=== PATIENT | male | born 1985 | race Caucasian/White ===

== ENCOUNTER 2024-12-24 13:38 | Emergency (ER) | payer OTHER, SELFPAY ==
--- NOTE | 2024-12-24 13:55 | ED_ITS ---
HPI - Extremity Problem General Chief complaint: Extremity Problem,Nontraumatic Stated complaint: Right Hand Pain Time Seen by Provider: 12/24/24 14:00 Source: patient, RN notes reviewed and old records reviewed Mode of arrival: ambulatory Limitations: no limitations History of Present Illness HPI Narrative: 39 year old male who presents to express care with complaints of right hand pain specifically to right thumb and index finger with stated history of psoriatic arthritis and some stiffness to his left thumb with flare since end of November. Patient reports that he is on Sulfasalazine and Celebrex presently to try and manage his arthritis presently. Patient reports that he has an appointment with a new agricultural engineering technologist at [facility] in December on the . He was hoping today to get a joint injection to hold him over till he see Heating Equipment Installer. Instructed patient that we do not perform joint injections here and we have no x-ray available at out facility today. Offered patient oral or IM steroid injection but patient is concerned it will raise his blood sugar too much and he is Type II diabetic on metformin. Discussed different topical medications on market not receptive to diclofenac ointment.He reports that he has been taking Ibuprofen for his pain also.Patient reports that he was on Tremfya last but had allergic reaction with hives from that medication. MD Complaint: extremity pain, extremity swelling and joint paint (thumb and index finger) Onset (ago): week(s) (2 weeks flare) Location: left, right and upper extremity (left thumb stiffness, pain right thumb and index finger) Severity scale (1-10): 8 Quality: sharp and other (throbbing) Exacerbating factors: range of motion Related Data Home Medications ?Medication ?Instructions ?Recorded ?Confirmed ?Last Taken ?Type levothyroxine 112 mcg tablet 112 mcg PO DAILY 12/31/18 Unknown History losartan 100 mg tablet 100 mg PO DAILY 12/31/18 Un known History rosuvastatin 5 mg tablet 5 mg PO DAILY 12/31/18 Unkn own History celecoxib 200 mg capsule mg 12/24/24 Unknown History famotidine 40 mg tablet mg 12/24/24 Unknown History levothyroxine 150 mcg tablet mcg 12/24/24 Unknown His tory (Synthroid) metformin 500 mg tablet,extended mg PO 12/24/24 Unkno wn History release 24 hr montelukast 10 mg tablet mg 12/24/24 Unknown History rosuvastatin 10 mg tablet mg 12/24/24 Unknown History sulfasalazine 500 mg PO 12/24/24 Unknown History tablet,delayed release Allergies Allergy/AdvReac Type Severity Reaction Status Date / Time pineapple Allergy Unknown Unknown Verified 12/24/24 13:55 red meat Allergy Unknown Unknown Uncoded 12/24/24 13:55 Review of Systems Review of Systems: CONSTITUTIONAL: Denies fever, chills, or sweats. EYES: Denies visual changes, redness, or discharge. ENT: Denies rhinorrhea, congestion, sore throat, or otalgia. CARDIOVASCULAR: Denies chest pain, palpitations, or edema. RESPIRATORY: Denies cough or dyspnea. GASTROINTESTINAL: Denies abdominal pain, nausea, vomiting, or diarrhea. GENITOURINARY: Denies dysuria or hematuria. SKIN: Denies rash or itching. MUSCULOSKELETAL: Denies back pain,positive for pain to his right index finger and thumb and also complaints of stiffness of his left thumb joint pain, or myalgia.History of psoriatic arthritis NEUROLOGIC: Denies headache, numbness, or weakness. PSYCHIATRIC: Denies anxiety or depression. All systems reviewed & are unremarkable except as noted in HPI and below PMFSH Past Medical History Medical History (Updated 12/26/24 @ 07:38 by Sangita Funk APRN) PA (psoriatic arthritis) Diabetes mellitus, type II Hypertension Anxiety Depression Head ache Psoriasis Thyroid disease Family History Family History (Updated 06/04/18 @ 11:26 by DOCTOR UNKNOWN) Mother Family history of thyroid disease Family history of malignant neoplasm of breast in first degree relative Father Acute myocardial infarction Grandparent Acute myocardial infarction Family history of chronic obstructive pulmonary disease Social History Social History (Updated 12/26/24 @ 07:33 by Sangita Funk APRN) Smoking status: Never smoker Alcohol intake: current Substance use type: does not use Living arrangements: with family Gender identity (if verbalized by the patient): Male Comments At time of signature, agree with nursing past medical, surgical, social and family history. There is no relevant family history pertinent to the presenting complaint Exam Narrative: GENERAL: Well-appearing, well-nourished, obese,and in no acute distress. HEAD: Normocephalic, atraumatic. EYES: PERRLA and EOMI. ENT: Nares clear, no rhinorrhea or epistaxis. Mucous membranes moist.TMs normal with good light reflex, throat pink with no swelling NECK: Supple.no lymphadenopathy CHEST: Clear to auscultation. No respiratory distress.SAO2 98% on room air HEART: Regular rate and rhythm. No murmur heard. Normal peripheral pulses. ABDOMEN: Soft, nontender, nondistended, normal active bowel sounds. EXTREMITIES: Normal range of motion. No acute edema.Reports pain to the right index finger and right thumb with stiffness of left thumb from flare of psoriatic arthritis. Patient reports no tingling or numbness to hands, reports pain increases with movement of affected fingers SKIN: Warm, dry, no rash. NEURO: No focal deficits. Alert and oriented x3. Course Course Emergency Course: Patient is aware of diagnosis, understands and agrees to treatment plan.? Anticipatory guidance given.? Patient agrees to follow-up as directed and is aware of reasons to seek care at the emergency department. Portions of this record may have been created with voice recognition software Level of Care: Express Care Visit Vital Signs Vital signs: Vital Signs Temperature 36.3 C L 12/24/24 13:56 Pulse Rate 73 12/24/24 13:56 Respiratory Rate 20 12/24/24 13:56 Blood Pressure 151/101 H 12/24/24 13:56 Pulse Oximetry 98 12/24/24 13:56 Oxygen Delivery Room Air 12/24/24 13:56 Temperature 36.3 C L 12/24/24 13:56 Pulse Rate 73 12/24/24 13:56 Respiratory Rate 20 12/24/24 13:56 Blood Pressure 151/101 H 12/24/24 13:56 Pulse Oximetry 98 12/24/24 13:56 Oxygen Delivery Room Air 12/24/24 13:56 Reviewed MDM - Extremity (Nontraumatic) Differential Diagnosis Differential diagnosis: Likely other (swelling and pain of right thumb and index finger, stiffness left thumb, psoriatic arthritis flare) Medical Records Attestation: I reviewed the patient's medical records. Critical Care Time Critical Care Time Critical Care Time: No Discharge Plan Discharge Clinical Impression: PA (psoriatic arthritis) Hand pain Qualifiers: Laterality: bilateral Qualified Code(s): M79.641 - Pain in right hand Patient Disposition: Home Condition: Stable Instructions: Antibiotic Form, Arthralgia (ED) Additional Instructions: Tylenol arthritis strength 650 mg 1 tab routinely every 8 hours for pain Ibuprofen 600 mg p.o. for break through pain every 6 hours topical ointment such as Eze Hubbard with lidocaine Encourage movement of joints to help prevent atrophy Follow-up with PCP if further problems or concerns Ice to the area 20-30 minutes 4-6 times a day Elevate above heart Follow up with new agricultural engineering technologist appointment at [facility] on January 04 If your symptoms persist, change or worsen significantly before you can contact your personal physician then please, without delay, go to the emergency department for further evaluation. Follow-up with PCP in 7-10 days or sooner if needed Follow up with PCP soon in regards to your blood pressure which is elevated above threshold for referral. Blood pressure above 120/80 may indicate pre- hypertension. 151/101 Patient Language: Syriac Prescriptions: No Action celecoxib 200 mg capsule famotidine 40 mg tablet sulfasalazine 500 mg tablet,delayed release (DR/EC) PO levothyroxine [Synthroid] 150 mcg tablet montelukast 10 mg tablet metformin 500 mg tablet extended release 24 hr PO rosuvastatin 10 mg tablet losartan 100 mg tablet 100 mg PO DAILY rosuvastatin 5 mg tablet 5 mg PO DAILY levothyroxine 112 mcg tablet 112 mcg PO DAILY Follow-up/Referrals: PHYSICIAN,PORTFOLIO ASSISTANT [Primary Care Provider, Internal Medicine] Time of Disposition: 14:11 Quality Lukas Coma Scale Eyes: Open Verbal: Oriented and Alert Motor: Follows Commands Lukas Coma Total Score: 15
[2024-12-24 13:56] VITALS: BP 151/101; PULSE 73; RESP 20; TEMP 36.3; O2SAT 98
--- OUTSIDE RECORDS SUMMARY | 2024-12-24 17:55 | XMS_ITS | Clinical Summary ---
Author Organization [facility] Address [address] [place] [address] Care Team Providers Care Control Clerk Food And Beverage Name Role Phone Unavailable Primary Care Provider Unavailabl e Source Comments [facility] Stockpile,non-owned Affiliates and Associated Physician Practices is amultiple site organization consisting of ambulatory clinics and hospital sitesin [place], [place], [place] and [place]. This disclosure is being madepursuant to the Care Everywhere program and may not contain all information available regarding this patient. Last updated 17.[facility] Stockpile Social History Tobacco Use Types Packs/Day Years Used Date Smoking Tobacco: Never Assessed Sex and Gender Information Value Date Recorded Sex Assigned at Not on file Legal Sex Male 3:58 PM DIRECTOR OF EARLY CHILDHOOD Gender Identity Not on file Sexual Orientation Not on file Plan of Treatment Health Maintenance Due Date Last Done Comments LIPID TESTING 1983 HIV SCREENING 09/08/1998 HEPATITIS C SCREENING 09/04/2001 DTAP/TDAP/TD VACCINES (1 - Tdap) 09/08/2002 HEPATITIS B VACCINE (1 of 3 - 19+ 3-dose series) 09/08/2002 HPV VACCINE (1 - 3-dose SCDM series) 09/08/2010 DEPRESSION SCREENING 02/11/2024 COVID-19 VACCINE (1 - 2023-2 5 season) 2024 INFLUENZA VACCINE (#1) 2024 ZOSTER VACCINE (1 of 2) 09/08/2033 HIB VACCINE Aged Out No longer eligi ble based on patient's age to complete this topic MENINGOCOCCAL (Group B) VACC INE SHARED DECISION-MAKING Aged Out No longer eligibl e based on patient's age to complete this topic MENINGOCOCCAL GROUPS A/C/Y/W VACCINE Aged Out No longer eligible b ased on patient's age to complete this topic PNEUMOCOCCAL VACCINE Aged Out No long er eligible based on patient's age to complete this topic Insurance YULISA
--- OUTSIDE RECORDS SUMMARY | 2024-12-24 17:55 | XMS_ITS | Encounter Summary ---
Author Organization [facility] Address [address] [place] [address] Phone Care Team Providers Care Musculoskeletal Physician Name Role Phone Helder Figueroa MD Primary Care Provider [phone] No, Physician Primary Care Provider [phone] Ann Marie Orta MD Primary Care Provider [phone] No, Physician Primary Care Provider [phone] Encounter Details Date Type Department Care Team (Late st Contact Info) Description 01/18/[address] [facility] ProviderStarla MD [address] [place] [address] Social History Tobacco Use Types Packs/Day Years Used Date Smoking Tobacco: Never Smokeless Tobacco: Never Alcohol Use Standard Drinks/Week Comments Yes 0 (1 standard drink = 0.6 oz pur e alcohol) Sex and Gender Information Value Date Recorded Sex Assigned at Not on file Legal Sex Male 2:08 PM THERMOFORMING MACHINE OPERATOR Gender Identity Not on file Sexual Orientation Straight 03/11/2024 2: 24 PM THERMOFORMING MACHINE OPERATOR documented as of this encounter Plan of Treatment Not on file documented as of this encounter Procedures Procedure Name Priority Date/Time Associated Diagnosis Comments DISCHARGE LABORATORY CUMULATIVE REPORT 01/18/2017 12:00 AM THERMOFORMING MACHINE OPERATOR documented in this encounter Results * DISCHARGE LABORATORY CUMULATIVE REPORT (01/18/2017 12:00 AM THERMOFORMING MACHINE OPERATOR) Narrative 01/18/2017 12:00 AM THERMOFORMING MACHINE OPERATOR Ordered by an unspecified provider. us Historical Provider LAB BLOOD ORDERABLES Lia l Result documented in this encounter Visit Diagnoses Not on filedocumented in this encounter Care Teams Musculoskeletal Physician Relationship Specialty Start Date End Date Helder Figueroa MD PCP - General 05/10/16 09/01/23 No, Physician PCP - General 09/02/23 09/09/24 [place] [id number] [address] PCP - General Endocrinology Diabetes & Metabolism 09/10/24 10/05/24 No, Physician PCP - General 11/03/24 documented as of this encounter
--- OUTSIDE RECORDS SUMMARY | 2024-12-24 17:55 | XMS_ITS | Clinical Summary ---
Author Organization [facility] Address [address] [place] [address] Phone Care Team Providers Care Electrotype Caster Name Role Phone Provider, None Primary Care Provider Unavailabl e Active Problems Problem Noted Date Diagnosed Date Adjustment disorder with mixed anxiety and depre ssed mood 08/27/2024 Encounters Date Type Department Care Team Description 11/26/2024 1:00 PM CDT Outpatient Clinic Visit [facility] [address] [place] [address] Areli Rey, MARIA DE JESUS Adjustment disorder with mixed anxiety and depressed mood (Primary Dx) Discharge Disposition: Discharged to home or Selfcare 11/26/2024 Travel 10/22/2024 1:45 PM CDT Outpatient Clinic Visit [facility] [address] [place] [address] Areli Rey, MARIA DE JESUS Adjustment disorder with mixed anxiety and depressed mood (Primary Dx) Discharge Disposition: Discharged to home or Selfcare 10/22/2024 Travel 09/24/2024 1:00 PM CDT Outpatient Clinic Visit [facility] [address] [place] [address] Areli Rye, MARIA DE JESUS Adjustment disorder with mixed anxiety and depressed mood (Primary Dx) Discharge Disposition: Discharged to home or Selfcare 09/24/2024 Travel from Last 3 Months Social History Tobacco Use Types Packs/Day Years Used Date Smoking Tobacco: Never Assessed Sex and Gender Information Value Date Recorded Sex Assigned at Not on file Legal Sex Male 11:15 PM CDT Gender Identity Not on file Sexual Orientation Not on file Plan of Treatment Health Maintenance Due Date Last Done Comments Hepatitis C Virus (HCV) Screening 1985 Hepatitis B Immunization (1 of 3 - 19+ 3-dose series) 09/08/2002 Human Papillomavirus (HPV) Immunization (1 - Risk 3-dose SCDM series) 09/08/2010 Influenza Immunization (#1) 10/11/2024/0 02/2024, 02/22/2021, 11/20/2018, Additional history exists SARS-COV-2 Immunization ( - 2024- season) 2024 02/22/2021, 04/17/2020 Respiratory Syncytial Virus (RSV) Immunization (Adult) (1 - 1-dose 75+ series) 09/08/2058 TdaP Immunization Completed 03/22/2018, 11/08/2009 Meningococcal Immunization (ACWY) Aged Out No longer eligible based on patient's age to complete this topic Pneumococcal Immunization Combined Aged Out No longer eligible based on patient's age to complete this topic Rotavirus Immunization Aged Out No lo nger eligible based on patient's age to complete this topic Goals Goal Patient Goal Type Associated Problems Recent Progress Patient-Stated? Author ANXIETY Anxiety On track( 025 1:58 PM CDT) No Arlei Rey, HAND II TUBE BENDER Note: Goal/Objective: Increase coping skills, stress management tools and focus on self care. Anticipated Time Frame for Goal Completion: 6 months Goal Reviewed with: patient Readiness to change: Ready to change Department associated with goal: [facility] Steps to achieve goal: will attend counseling/psychotherapy sessions at least once monthly, at least 6 sessions, utilizing individual and/or group sessions to express thoughts and feelings. to identify, verbalize and process at least three contributing factors/triggers to anxiety and depression. to identify and verbalize at least three actions/skills to prevent and/or cope with anxiety and depression. to put into action, at least one time weekly, for one month, an action/skill to prevent and or cope with anxiety and depression. Insurance [employer] Care Teams Electrotype Caster Relationship Specialty Start Date End Date Provider, None [place] PCP - General 06/24/24
--- OUTSIDE RECORDS SUMMARY | 2024-12-24 17:55 | XMS_ITS | Clinical Summary ---
Author Organization [facility] Address [address] [place] [address] Care Team Providers Care Ambulatory Services Representative Name Role Phone No, Physician Primary Care Provider [phone] Allergies Active Allergy Reactions Criticality Noted Date Comments Pork/Porcine Containing Products Hives Medium 06/2024 Medications celecoxib (CeleBREX) 200 mg capsule Take 1 capsule (200 mg total) by mouth 2 (two) times a day Active sulfaSALAzine EN (AZULFIDINE EN) 500 mg EC tablet TAKE 1-2 TABLETS BY ORAL ROUTE 2 TIMES A DAY 2 Active amLODIPine (NORVASC) 5 mg tablet Take 1 tablet (5 mg total) by mouth daily 90 tablet 3 3 Active syringe with needle, safety 3 mL 25 gauge x 5/8 syringe Use to inject testosterone IM 20 each 11 5 Active predniSONE (DELTASONE) 10 mg tablet 5 Active montelukast (SINGULAIR) 10 mg tablet Take 1 tablet (10 mg total) by mouth daily 5 Active famotidine (PEPCID) 40 mg tablet Take 1 tablet (40 mg total) by mouth daily 5 Active EnbreL SureClick 50 mg/mL (1 mL) pen injector 5 Active levothyroxine (SYNTHROID) 150 mcg tabletIndicatio ns:Type 2 diabetes mellitus with hyperglycemia, without long-term current use of insulin (HCC) Take 1 tablet (150 mcg total) by mouth every morning 90 tablet 2 5 Active losartan (COZAAR) 100 mg tabletIndicatio ns:Type 2 diabetes mellitus with hyperglycemia, without long-term current use of insulin (HCC) Take 1 tablet (100 mg total) by mouth daily 90 tablet 3 5 Active metFORMIN XR (GLUCOPHAGE XR) 500 mg 24 hr tabletIndicatio ns:Type 2 diabetes mellitus with hyperglycemia, without long-term current use of insulin (HCC) Take 2 tabs BID 360 tablet 3 5 Active rosuvastatin (CRESTOR) 10 mg tabletIndicatio ns:Type 2 diabetes mellitus with hyperglycemia, without long-term current use of insulin (HCC) Take 1 tablet (10 mg total) by mouth daily 90 tablet 2 5 Active glimepiride (AMARYL) 4 mg tabletIndicatio ns:Type 2 diabetes mellitus with hyperglycemia, without long-term current use of insulin (HCC) Take 1 tablet (4 mg total) by mouth daily before breakfast 30 tablet 3 5 Active tirzepatide (Mounjaro) 5 mg/0.5 mL pen injector injectionIndica tions:Type 2 diabetes mellitus with hyperglycemia, without long-term current use of insulin ([facility]) Inject 0.5 mL (5 mg total) under the skin once a week 2 mL 3 5 Active Active Problems Problem Noted Date Diagnosed Date Diagnosis unknown 09/22/2024 Overview (09/22/2024): [employer]reesia 01/30/2024 Contraception management 09/22/2024 Overview (09/22/2024): [employer] 01/30/2024 Testicular pain 09/22/2024 Diabetes mellitus 09/22/2024 Overview (09/22/2024): [employer] 01/30/2024 Lower urinary tract symptoms (LUTS) 09/22/2024 Autoimmune disease 09/22/2024 Overview (09/22/2024): [employer] 01/30/2024 Hypertension 09/22/2024 Overview (09/22/2024): [employer] 01/30/2024 Adjustment disorder with mixed anxiety and depre ssed mood 08/27/2024 Morbid (severe) obesity due to excess calories 0 05/22/2023 Assessment & Plan (05/22/2023 12:27 PM CDT): Continue working on lifestyle, and will restart GLP1a when able to. Body mass index (BMI) 45.0-49.9, adult Type 2 diabetes mellitus wit h hyperglycemia, without long-term current use of insulin 02/20/2023 Assessment & Plan (09/02/2023 11:06 AM CDT): Chronic problem, improving but not at goal. On metformin and Mounjaro. Has some GI side effects intermittently with Mounjaro. Start glipizide 5 mg with first meal. Take metformin 4 pills daily consistently. Schedule an eye exam. Update routine labs next visit. Assessment & Plan (05/22/2023 12:30 PM CDT): Chronic problem, not at goal due to insurance change and being off meds. He was previously on max dose metformin and tolerated it well so increased this today. And gave him glipizide 5 mg to take with his first meal to use in the short term. When his new insurance changes this summer he'll let us know and we'll restart Mounjaro and he can stop glipizide. He was having some upper GI symptoms (burping, terrible smell) so may want to try omeprazole OTC when he restarts Mounjaro and see if it helps with symptoms initially. He is unable to void today so will update MA/Cr next visit. Hyperlipidemia associated with type 2 diabetes bridger jens 02/20/2023 Assessment & Plan (09/02/2023 11:05 AM CDT): Chronic problem. On statin therapy, no changes. Take rosuvastatin consistently. Assessment & Plan (05/22/2023 10:26 AM CDT): Chronic problem. On statin therapy, no changes. Hypertension associated with type 2 diabetes benjy litus 02/20/2023 Assessment & Plan (09/02/2023 11:05 AM CDT): Chronic problem, not at goal. Resume taking losartan and amlodipine consistently. Assessment & Plan (05/22/2023 10:26 AM CDT): Controlled on losartan, amlodipine. No changes. Testicular hypofunction 09/12/2020 Overview (09/12/2020): Dr Guthrie managing Assessment & Plan (09/02/2023 11:07 AM CDT): Chronic problem, was off Xyosted due to insurance issue. He now has new insurance and wants to try again. Notices mood changes and decreased libido. Assessment & Plan (05/22/2023 10:26 AM CDT): Chronic problem, off Xyosted. Option is to change to IM testosterone, he declines. Will wait until insurance changes then let us know and we can send in Xyosted again. Assessment & Plan (10/15/2022 4:23 PM CDT): Update free to the testosterone, prolactin and FSH Will start process for PA with Xyosted as indicated Assessment & Plan (05/10/2021 11:04 PM CDT): Continue management by his operations scheduler. Dysuria 09/12/2020 At risk for sexually transmi tted disease due to unprotected sex 09/12/2020 Assessment & Plan (09/12/2020 9:03 AM CDT): STD panel call back for results. Left leg swelling 07/25/2020 Assessment & Plan (07/25/2020 5:33 PM CDT): Very minimal on examination today and both lower extremities circumference is similar. May be the result of his recent knee swelling. Use compression hose, low-salt diet, keep his leg elevated. Call back if symptoms worsen. Fungal otitis externa 06/05/2020 Assessment & Plan (06/05/2020 9:30 AM CDT): Lotrimin 10 drops into each ear twice daily for 10 days Avoid ear cleaning techniques Avoid water to ears Follow up in 3-4 weeks How to Use Ear Drops Warm them up in your hand or under your arm for 2 minutes Then lay on your side with ear to have drops placed up Then pull back on the ear to open the ear canal Place the drops, then massage outer portion of ear to distribute ear drops for 2 seconds Let the drops sit in the ear for [address] cotton ball and sit up Remove the cotton ball after less than ten minutes Repeat if instructed to the other ear Avoid ear cleaning techniques Avoid water to ear Otitis externa, fungal, right ear 08/24/2019 Assessment & Plan (07/03/2020 10:59 AM CDT): Avoid ear cleaning techniques Avoid water to ears Call if ears plug up again Assessment & Plan (09/07/2019 9:01 AM CDT): Continue Lotrimin twice daily for the rest of the week Avoid ear cleaning techniques Avoid water to ears If hearing continues to seem plugged, call for hearing test Assessment & Plan (08/24/2019 11:40 AM CDT): Lotrimin (clotrimazole) drops to RIGHT EAR twice daily for 14 days Avoid ear cleaning techniques Avoid water to ears Follow up in one week Lotrisone to outer portion of ears How to Use Ear Drops discussed and Handout provided Right ear pain 06/07/2019 Assessment & Plan (06/07/2019 10:10 AM CDT): Amoxicillin and Cortisporin drops. Call back if no improvement in pain and hearing for ENT evaluation later this week. Psoriatic arthritis (CMS/HCC) 11/20/2018 Overview (02/20/2021): Dr Kelsey Bailey as of 02/2020 Assessment & Plan (04/07/2022 10:27 PM [employer]): Follow-up with repair manager as they direct. Assessment & Plan (05/10/2021 11:04 PM CDT): Continue management by his repair manager. Assessment & Plan (07/29/2019 10:22 AM CDT): Continue diclofenac. He is aware the risks posed by NSAIDs. He is looking for a new repair manager. He is choosing to avoid immunosuppressive agents until COVID-19 issues resolved. Assessment & Plan (11/20/2018 2:25 PM CDT): Continue methotrexate and follow-up with his repair manager as they direct. Migraine without aura and wi thout status migrainosus, not intractable 05/20/2018 Assessment & Plan (05/20/2018 5:12 PM CDT): Trial of Imitrex. Treat sleep apnea if present. Excessive daytime sleepiness 05/19/2018 Assessment & Plan (05/20/2018 5:10 PM CDT): Sleep study to rule out sleep apnea call back for results. He is aware the need for follow-up appointment for CPAP if diagnosed with sleep apnea and started on CPAP therapy. Polyarthritis 02/16/2018 Assessment & Plan (05/20/2018 5:10 PM CDT): Laboratory workup and follow-up with repair manager as they direct. Assessment & Plan (05/06/2018 9:19 PM CDT): Will try holding rosuvastatin for 1 month and if no improvement would recommend restarting. Referral to Dr. Cole due to history of psoriasis and now widespread polyarthralgia. Morbid obesity with BMI of 40.0-44.9, adult 07/12 Assessment & Plan (04/07/2022 10:27 PM [employer]): Patient is encouraged to lose weight with a combination of caloric reduction and increased exercise. Various strategies discussed. The long-term risks associated with continued morbid obesity discussed. Assessment & Plan (05/21/2021 10:08 AM CDT): Patient is encouraged to lose weight with a combination of caloric reduction and increased exercise. Various strategies discussed. The long-term risks associated with continued morbid obesity discussed. Assessment & Plan (11/01/2020 8:33 AM CDT): The patient was counseled on the importance of maintaining a healthy weight and the risks of obesity. Weight loss recommended. Assessment & Plan (09/12/2020 9:02 AM CDT): Patient is encouraged to lose weight with a combination of caloric reduction and increased exercise. Various strategies discussed. The long-term risks associated with continued morbid obesity discussed. Assessment & Plan (07/25/2020 5:33 PM CDT): Patient is encouraged to lose weight with a combination of caloric reduction and increased exercise. Various strategies discussed. The long-term risks associated with continued morbid obesity discussed. Assessment & Plan (08/06/2017 2:17 PM CDT): Patient is encouraged to lose weight with a combination of caloric reduction and increased exercise. Various strategies discussed. The long-term risks associated with continued morbid obesity discussed. Healthcare maintenance 06/11/2017 Assessment & Plan (04/07/2022 10:27 PM [employer]): Flu shot each November. Tetanus booster every 10 years. Diet exercise for weight loss recommended. Will see him back in 6 months with lab sooner if needed. Assessment & Plan (05/10/2021 11:04 PM CDT): Flu shot each November. Tetanus booster every 10 years. COVID vaccine recommended. Diet exercise for weight loss recommended. Will see him back in 3 months with lab sooner if needed. Assessment & Plan (07/29/2019 10:24 AM CDT): Flu shot each November. Tetanus booster every 10 years. Diet exercise for weight loss. Will see him back in 3 months with lab sooner if needed. Assessment & Plan (05/20/2018 5:11 PM CDT): Flu shot each November. Tetanus booster every 10 years. Will see him back in 6 months with lab sooner if needed. Assessment & Plan (06/11/2017 3:35 PM CDT): Flu shot each November. Tetanus booster every 10 years. Will plan on seeing him back in 6 months with fasting lab sooner if needed. Acute non-recurrent pansinusitis 05/30/2017 Assessment & Plan (05/30/2017 10:58 AM CDT): Recommended conservative therapy to treat symptoms including Flonase nasal spray, which was prescribed in office today, use of a humidifier vaporizer at night, daily antihistamine use as a month a fence this being more of an allergic sinusitis based on clinical presentation and presenting symptoms however patient is wanting to ensure that prior to starting his new job, which he does have any off time for, that we treat him for any bacterial infection which I sent off in amoxicillin course if in the event symptoms worsen over the next 3-5 days and certainly if they fail to improve come Friday or Friday. Close follow-up outpatient follow-up in office as needed and certainly if symptoms are not improved with antibiotics in off to the pharmacy. Generalized anxiety disorder 01/24/2017 Assessment & Plan (07/29/2019 10:24 AM CDT): Continue sertraline and focus on exercise and consider counseling if symptoms remain bothersome. Assessment & Plan (08/06/2017 2:17 PM CDT): Continue sertraline and increased dose to 100 mg daily. Assessment & Plan (06/11/2017 3:35 PM CDT): Add sertraline and discussed side effects and will call back if any develop. Psoriasis 07/12/2016 Overview (07/23/2016): Psoriasis Shoulder pain 03/25/2014 Overview (05/17/2016): Shoulder pain Hypertension 08/12/2013 Overview (05/17/2016): Hypertension Assessment & Plan (04/07/2022 10:27 PM [employer]): Blood pressure well controlled on amlodipine, losartan Assessment & Plan (05/21/2021 10:08 AM CDT): Well controlled on the current regimen. Avoidance of salt, proper body weight, and routine exercise recommended. Assessment & Plan (05/10/2021 11:03 PM CDT): Restart his amlodipine and losartan call back if blood pressures do not improve. Assessment & Plan (09/12/2020 9:02 AM CDT): Add amlodipine to his losartan. Avoid salt increased exercise lose weight call back for any side effects and will re-evaluate at next visit October. Assessment & Plan (07/25/2020 5:31 PM CDT): Well controlled on the current regimen. Avoidance of salt, proper body weight, and routine exercise recommended. Assessment & Plan (07/29/2019 10:23 AM CDT): Borderline control. Avoid salt increased exercise lose weight. Assessment & Plan (11/20/2018 2:26 PM CDT): Well controlled on the current regimen. Avoidance of salt, proper body weight, and routine exercise recommended. Assessment & Plan (05/20/2018 5:09 PM CDT): Well controlled on the current regimen. Avoidance of salt, proper body weight, and routine exercise recommended. Assessment & Plan (05/06/2018 9:18 PM CDT): Well controlled on the current regimen. Avoidance of salt, proper body weight, and routine exercise recommended. Assessment & Plan (08/06/2017 2:17 PM CDT): Well controlled on the current regimen. Avoidance of salt, proper body weight, and routine exercise recommended. Assessment & Plan (06/11/2017 3:34 PM CDT): Well controlled on the current regimen. Avoidance of salt, proper body weight, and routine exercise recommended. Assessment & Plan (05/30/2017 10:56 AM CDT): Higher in office today than ideal. I recommended against taking any [id number] decongestants to assist with blood pressure control, continuing losartan at current dosing, close monitoring out patient regarding hypertension and certainly to follow up in our office as scheduled in 2 months for repeat blood pressure check and labs prior Atopic rhinitis 06/26/2013 Overview (05/17/2016): ALLERGIC RHINITIS NOS Hypothyroidism 06/26/2013 Overview (05/17/2016): Hypothyroidism Assessment & Plan (09/02/2023 11:05 AM CDT): Clinically and biochemically euthyroid. No medication changes. Assessment & Plan (05/22/2023 12:27 PM CDT): Clinically and biochemically euthyroid. No medication changes. Assessment & Plan (10/15/2022 4:23 PM CDT): Will update TSH and free T4 Continue levothyroxine . Will advise if there is need to make adjustment to the dose based on results of labs done today Assessment & Plan (04/07/2022 10:27 PM [employer]): Patient is asymptomatic on current dose of levothyroxine and TSH free T4 are normal and we will repeat levels before next visit. Assessment & Plan (05/10/2021 11:03 PM CDT): Continue levothyroxine managed by his operations scheduler. Assessment & Plan (07/25/2020 5:31 PM CDT): Continue his levothyroxine managed by his operations scheduler. Assessment & Plan (07/29/2019 10:23 AM CDT): Patient is asymptomatic on current dose of levothyroxine and TSH free T4 are normal and we will repeat levels after next visit. Assessment & Plan (11/20/2018 2:26 PM CDT): Follow-up with his operations scheduler as they direct. Assessment & Plan (05/20/2018 5:09 PM CDT): Patient is asymptomatic on current dose of levothyroxine and TSH free T4 are normal and we will repeat levels before next visit. Assessment & Plan (05/06/2018 9:17 PM CDT): Patient is asymptomatic on current dose of levothyroxine and TSH free T4 are normal and we will repeat levels before next visit. Assessment & Plan (08/06/2017 2:17 PM CDT): Patient is asymptomatic on current dose of levothyroxine and TSH free T4 are normal and we will repeat levels before next visit. Assessment & Plan (06/11/2017 3:34 PM CDT): Patient is asymptomatic on current dose of levothyroxine and TSH free T4 are normal and we will repeat levels before next visit. Major depressive disorder 06/26/2013 Overview (09/12/2020): Referred to Dr Jeffrey 09/2020 Assessment & Plan (05/10/2021 11:04 PM CDT): Continue management by psychiatrist. Assessment & Plan (09/12/2020 9:02 AM CDT): Continue sertraline and refer to Psychiatry as he requests. Assessment & Plan (11/20/2018 2:25 PM CDT): Well controlled on sertraline. Assessment & Plan (05/20/2018 5:09 PM CDT): Stable on sertraline Assessment & Plan (05/06/2018 9:17 PM CDT): Well controlled on sertraline. Assessment & Plan (08/06/2017 2:17 PM CDT): Improved on sertraline and will increase his dose to 100 mg daily. Call back if side effects develop. Type 2 diabetes mellitus with hyperlipidemia ([facility] S/HCC) 08/19/2012 Overview (02/20/2021): Dr Maribel Guthrie Assessment & Plan (10/15/2022 4:22 PM CDT): Hba1c was Lab Results Component Value Date HGBA1C 7.2 10/15/2022 today, indicating suboptimal DM control Goal Hba1c and blood glucose explained Diet and exercise were advised Prevention and treatment of hyypoglcyemia were discussed with the patient Blood glucose monitoring : 1-2 x wk Adjustment to medications: Continue metformin I recommended Mounjaro which might have less side effects than Ozempic I provided the patient with a box of 4 pens of 2.5 mg and he took the 1st dose here in the office The patient to let me know in a few weeks if he is tolerating well without the side effects that he was seen with Ozempic so we can switch to Mounjaro Continue metformin Assessment & Plan (04/07/2022 10:26 PM [employer]): Continue current medication regimen follow up with his operations scheduler as they direct. Check A1c once or twice yearly. Assessment & Plan (05/21/2021 10:07 AM CDT): A1c at goal at 6.5% and should follow-up with his operations scheduler for management as she directs. Assessment & Plan (05/10/2021 11:03 PM CDT): Continue management by his operations scheduler. Diet exercise weight loss discussed Assessment & Plan (07/25/2020 5:31 PM CDT): A1c reported as 12 in uncontrolled. He is now on Ozempic and metformin and has lost 19 lb with diet exercise. He should continues current efforts and follow-up with his operations scheduler as they direct. Check A1c before next visit. Assessment & Plan (07/29/2019 10:22 AM CDT): With a lengthy discussion regarding the importance of low carb diet increased exercise and weight loss for control his diabetes. He is aware the risks posed to his health with poorly controlled diabetes. He has restart his metformin 1 tablet with dinner for 1 week and then go up to 2 tablets for a week and then 3 tablets for a week and finally stop at 4 tablets. Side effects discussed and call back if any develop. Assessment & Plan (11/20/2018 2:25 PM CDT): A1c, LDL, and blood pressure currently well controlled on current regimen. Check a yearly diabetic eye exam and blood sugars daily. Monofilament testing is intact. Assessment & Plan (05/20/2018 5:09 PM CDT): A1c, LDL, and blood pressure currently well controlled on current regimen. Check a yearly diabetic eye exam and blood sugars daily. Take a daily aspirin. Monofilament testing is intact. Assessment & Plan (05/06/2018 9:17 PM CDT): A1c, LDL, and blood pressure currently well controlled on current regimen. Check a yearly diabetic eye exam and blood sugars daily. Take a daily aspirin. Monofilament testing is intact. Assessment & Plan (08/06/2017 2:16 PM CDT): A1c, LDL, and blood pressure currently well controlled on current regimen. Check a yearly diabetic eye exam and blood sugars daily. Take a daily aspirin. Monofilament testing is intact. Assessment & Plan (06/11/2017 3:34 PM CDT): A1c, , and blood pressure currently well controlled on current regimen. Check a yearly diabetic eye exam and blood sugars daily. Take a daily aspirin. Monofilament testing is intact. Thyroid nodule 08/19/2012 Overview (05/16/2016): Thyroid nodule Hypercholesterolemia 08/03/2012 Overview (08/26/2017): Pravastatin 40mg - LDL 135; Atorvastatin 20mg muscle aches; rosuvastatin 5 started 08/26/17 Assessment & Plan (04/07/2022 10:27 PM [employer]): Well controlled on current therapy and will check a lipid panel and LFTs in 6 months. Assessment & Plan (05/21/2021 10:08 AM CDT): Agree with increasing rosuvastatin 10 mg daily. Check lipids and LFTs before next visit. Diet exercise discussed. Assessment & Plan (05/10/2021 11:05 PM CDT): Restart his rosuvastatin check lipids and LFTs before next visit. Assessment & Plan (07/25/2020 5:31 PM CDT): Continue his rosuvastatin and check lipids and LFTs before next visit. Assessment & Plan (07/29/2019 10:23 AM CDT): Borderline control. Again focus on diet exercise weight loss. Continue rosuvastatin for now. Once A1c improved, consider increasing dose. Assessment & Plan (11/20/2018 2:26 PM CDT): Increase Crestor to daily again. Assessment & Plan (05/20/2018 5:09 PM CDT): Well controlled on current therapy and will check a lipid panel and LFTs in 6 months. Assessment & Plan (05/06/2018 9:18 PM CDT): Hold rosuvastatin for 1 month to see if he has improvement of his painful symptoms. Assessment & Plan (08/06/2017 2:17 PM CDT): Well controlled on current therapy and will check a lipid panel and LFTs in 6 months. If generalize aches and pains do not improve, consider discontinuation of his atorvastatin. Check CK level before next visit. Assessment & Plan (06/11/2017 3:34 PM CDT): He is back on his atorvastatin and will check labs before next visit. Resolved Problems Problem Noted Date Diagnosed Date Resolved Date Morbid obesity with BMI of 4 5.0-49.9, adult ([facility]) 02/16/2018 11/01/2020 Assessment & Plan (07/25/2020 5:33 PM CDT): Patient is encouraged to lose weight with a combination of caloric reduction and increased exercise. Various strategies discussed. The long-term risks associated with continued morbid obesity discussed. Assessment & Plan (07/29/2019 10:24 AM CDT): Patient is encouraged to lose weight with a combination of caloric reduction and increased exercise. Various strategies discussed. The long-term risks associated with continued morbid obesity discussed. Assessment & Plan (06/07/2019 10:10 AM CDT): Patient is encouraged to lose weight with a combination of caloric reduction and increased exercise. Various strategies discussed. The long-term risks associated with continued morbid obesity discussed. Assessment & Plan (11/20/2018 2:26 PM CDT): Patient is encouraged to lose weight with a combination of caloric reduction and increased exercise. Various strategies discussed. The long-term risks associated with continued morbid obesity discussed. Assessment & Plan (05/20/2018 5:10 PM CDT): Patient is encouraged to lose weight with a combination of caloric reduction and increased exercise. Various strategies discussed. The long-term risks associated with continued morbid obesity discussed. Assessment & Plan (05/06/2018 9:18 PM CDT): Patient is encouraged to lose weight with a combination of caloric reduction and increased exercise. Various strategies discussed. The long-term risks associated with continued morbid obesity discussed. Adult BMI 40.0-44.9 kg/sq m 05/30/2017 08/05/2017 Assessment & Plan (05/30/2017 10:41 AM CDT): Recommended patient to continue to increase heart healthy diet with adequate fruits, vegetables, and plenty of water along with mild-moderate daily exercise as tolerated. Morbid obesity 01/24/2017 08/05/2017 Assessment & Plan (06/11/2017 3:35 PM CDT): Patient is encouraged to lose weight with a combination of caloric reduction and increased exercise. Various strategies discussed. The long-term risks associated with continued morbid obesity discussed. BMI 45.0-49.9, adult 01/24/2017 018 Sore throat 01/09/2017 01/24/2017 Assessment & Plan (01/09/2017 3:01 PM ZIPPER SETTER LOCKSTITCH): Rapid strep negative. Throat culture obtained. Further direction pending these results. He has been instructed to contact the office if he has not heard from us regarding his culture results within 3 days. Humidification, fluids, and rest were recommended. Patient may take Tylenol or ibuprofen as needed for fever, chills, and body aches. We discussed symptoms of, duration of, and treatment of viral illness. Symptom should run their course within 5-7 days. Patient has been encouraged to contact the office for follow-up with any change in, worsening, or non improvement in his condition. Right flank pain 01/09/2017 01/24/2017 Assessment & Plan (01/09/2017 3:08 PM ZIPPER SETTER LOCKSTITCH): Urine dip revealing: negative leukocytes, nitrates, glucose, ketones, your ability 10, bilirubin. Trace protein and blood in the urine. Urine sample will be submitted for urinalysis with culture and sensitivity. Patient's current complaints of back ache correlate with musculoskeletal etiology. I recommend gentle stretching exercises. Handout was provided. He may also use [id number] anti-inflammatories. He has adequate supply of ibuprofen at home. He was encouraged to take 3 tablets for a total of 600 mg 3 times daily with food. He was encouraged to follow up in the office with absolutely any change in, worsening, or non improvement in his condition. He is encouraged to follow up if he fails to improve within the next week or two. Diabetes mellitus 08/03/2012 01/24/2017 Overview (05/17/2016): Diabetes mellitus Encounters Date Type Department Care Team Description 10/28/2024 Telephone [facility] [address], [place] [address] Ann Marie Orta MD Prior Auth (Mounjaro) 10/13/2024 Orders Only [facility] [address] [address] Ann Marie Orta MD Psoriatic arthritis (HCC) (Primary Dx) 10/07/2024 Orders Only [facility] [address] [address] Ann Marie Orta MD 10/06/2024 Telephone [facility] [address] [address] Ann Marie Orta MD Grain Drier Referral Request from Last 3 Months Immunizations Immunization Administration Dates Next Due Influenza, Quadrivalent, Spl it, Preservative Free, Intradermal 01/11/2016,01/09/2015 Influenza, Quadrivalent, Spl it, Preservative Free, Intramuscular 11/20/2018,01/24/2017 Influenza, Split 01/27/2012 Influenza, Trivalent, High D ose, Split, Preservative Free, Intramuscular 11/30/2012 Influenza, Unspecified 02/11/2024,2020(Deferred: Patient Refused),11/01/2020(Deferred: Patient Refused),09/12/2020(Deferred: Patient Refused),07/25/2020(Deferred: Patient Refused),11/12/2019(Deferred: Patient Refused),11/11/2019(Deferred: Patient Refused),10/02/2019(Deferred: Patient Refused),11/20/2018(Deferred: Patient Refused),01/18/2017 [employer] ([employer]) SARS-CoV-2 Vaccination 04/17/2020 Td, Unspecified 03/23/2018 Tdap 11/08/2009 Surgical History Surgery Date Site/Laterality Comments THUMB SURGERY 03/23/2018 Right Laceration repair Medical History Medical History Date Comments Hx Other Medical 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 Atopic rhinitis Allergic Rhiniti s Episodic mood disorder Mood Diso rder Hx Other Medical Low total but n ormal bioavailable testosterone lev Hx Other Medical Hypothyroidism, primary Hx Other Medical chest pain Hx Other Medical Vasectomy Hypertension Hypercholesteremia Diabetes mellitus Thyroid disease Depression Migraines Psoriatic arthritis (HCC) Family History Medical History Relation Name Comments Other Brother 2 Alive and well; Diabetes type II Father Diabetes me llitus type 2; Heart attack Father Other Father Alive and well; /Alive and well; Heart attack Maternal Grandfather Myocard ial infarction; Alzheimer's disease Maternal Grandmother Alzheimer's Disease; Breast cancer Mother Cancer -breast ; Living/Cancer, breast; Other Mother Grave's Disease ; /Graves disease; Relation Name Status Comments Brother 1 Alive Brother 2 Father Alive Maternal Grandfather Alive Maternal Grandmother Mother Alive Social History Tobacco Use Types Packs/Day Years Used Date Smoking Tobacco: Never Smokeless Tobacco: Never Tobacco Cessation:Counseling Given: Not Answered Alcohol Use Standard Drinks/Week Comments Yes 0 (1 standard drink = 0.6 oz pur e alcohol) AUDIT-C Answer Date Recorded Q1: How often do you have a drink containing alcohol? Never 03/11/2024 Q2: How many drinks containi ng alcohol do you have on a typical day when you are drinking? Patient does not drink Q3: How often do you have si x or more drinks on one occasion? Never 03/11/2024 PHQ-2 Answer Date Recorded PHQ-2 Total Score (If total score is 3 or more points, staff should administer the PHQ-9) 0 03/11/2024 Sex and Gender Information Value Date Recorded Sex Assigned at Not on file Legal Sex Male 2:08 PM ZIPPER SETTER LOCKSTITCH Gender Identity Not on file Sexual Orientation Straight 03/11/2024 2: 24 PM ZIPPER SETTER LOCKSTITCH Last Filed Vital Signs Vital Sign Reading Time Taken Comments Blood Pressure 118/62 09/22/2024 3:44 PM CDT Pulse 86 09/22/2024 3:44 PM CDT Temperature 36.7 C (98.1 F) 07/03/2020 10:19 AM CDT Respiratory Rate 18 09/22/2024 3:44 PM CDT Oxygen Saturation 98% 11/20/2018 1:50 PM CDT Inhaled Oxygen Concentration - - Weight 150.2 kg (331 lb 3.2 oz) 09/22/2024 3:44 PM CDT Height 182.9 cm (6') 09/22/2024 3:44 PM CDT Body Mass Index 44.92 09/22/2024 3:44 PM CDT Plan of Treatment Health Maintenance Due Date Last Done Comments Hepatitis C Screening 1983 Varicella Vaccines (1 of 2 - 13+ 2-dose series) 09/08/1996 Hepatitis B Screening 09/08/2001 Pneumococcal vaccine <65 (1 of 2 - PCV) 09/08/2002 HPV Vaccines (1 - 3-dose SCD M series) 09/08/2010 Dilated Eye Exam 08/17/2020 08/18/2019 Regular Well Visit/Exam 18-64 03/18/2023, 02/20/2021, 07/29/2019, Additional history exists Colon Cancer Screening-Colonoscopy 08/31/2023 08/30/2013, 08/30/2013, 08/30/2013 Foot Exam 05/21/2024 05/22/2023, 05/11, 11/20/2018, Additional history exists Covid-19 Vaccine (3 - 2024-2 6 season) 2024 02/22/2021, 04/17/2020 Influenza Vaccine (#1) 2024 , 11/20/2018, 01/24/2017, Additional history exists Albumin Creatinine Ratio, Urine 03/11/2025 03/11/2024, 02/16/2021, 09/15/2020, Additional history exists Depression Screening 03/11/2025 03/11/2024, 03/18/2022, 05/21/2021, Additional history exists Lipid Panel 03/11/2025 03/11/2024, 09/0 06/2022, 04/27/2021, Additional history exists eGFR 03/11/2025 03/11/2024, 09/0 06/2022, 04/27/2021, Additional history exists Hemoglobin A1C 03/25/2025 09/22/2024, 02/12, 09/02/2023, Additional history exists DTaP/Tdap/Td Vaccine (3 - Td or Tdap) 03/23/2028 03/23/2018, 11/08/2009 Colon Cancer Screening-CT Colonography Discontinued 08/30/2013, 08/30/2013, 08/30/2013 Colon Cancer Screening-DNA Stool Discontinued 08/30/2013, 08/30/2013, 08/30/2013 Colon Cancer Screening-FIT Discontinued 08/30, 08/30/2013, 08/30/2013 Colon Cancer Screening-Sigmoidoscopy Discontinued 08/30/2013, 08/30/2013, 08/30/2013 Procedures Procedure Name Priority Date/Time Associated Diagnosis Comments POCT HEMOGLOBIN A1C Routine 09/22/2024 3 :44 PM CDT Type 2 diabetes mellitus with hyperglycemia, without long-term current use of insulin (HCC) EGFR Routine 03/11/2024 3:09 PM ZIPPER SETTER LOCKSTITCH Type 2 diabetes mellitus with hyperglycemia, without long-term current use of insulin (HCC) LIPID PANEL Routine 03/11/2024 3:09 PM ZIPPER SETTER LOCKSTITCH Hyperlipidemia associated with type 2 diabetes mellitus (HCC) ALBUMIN CREATININE RATIO, URINE Routine 03/11/2024 3:09 PM ZIPPER SETTER LOCKSTITCH Type 2 diabetes mellitus with hyperglycemia, without long-term current use of insulin (HCC) DIABETES EYE EXAM Routine 08/18/2019 HM DIABETES FOOT EXAM Routine 07/12/2016 COLONOSCOPY IMAGES 08/30/2013 from Last 3 Months or Most Recently Relevant to Health Maintenance Results * (ABNORMAL) POCT hemoglobin A1c (09/22/2024 3:44 PM CDT) Pathologist [facility] Hemoglobin A1C, POC 9.0(A) 4.0 - 5.6 % Comment:None Capillary blood 09/22/2024 3 :44 PM CDT Ann Marie Orta MD POINT OF CARE TEST ORDERABLES Fi nal Result * eGFR (03/11/2024 3:09 PM ZIPPER SETTER LOCKSTITCH) Pathologist [facility] eGFR >90 >=60 mL/min/1. 73 m2 Comment: Interpretive Data Reference Interval Normal >/= 90 mL/min/1.73m2 Mildly decreased* 60 - 89 mL/min/1.73m2 Mildly to moderately decreased 45 - 59 mL/min/1.73m2 Moderately to severely decreased 30 - 44 mL/min/1.73m2 Severely decreased 15 - 29 mL/min/1.73m2 Kidney Failure < 15 mL/min/1.73m2 *Relative to young adult level Estimated glomerular filtration rate is determined by the 2020 CKD-EPI equation recommended by the National Kidney Foundation (A Unifying Approach to GFR Estimation: Recommendations of the NKF-ASK Task Force on Reassessing the Inclusion of Race in Diagnosing Kidney Disease, JASN 2020). The CKD-EPI equation should not be used for patients with unstable renal function and has not been validated in children and those over 70. Current interpretive data was last reviewed 2020. Blood 03/11/2024 3:09 PM ZIPPER SETTER LOCKSTITCH 03/11/2024 8:35 PM ZIPPER SETTER LOCKSTITCH us Ann Marie Orta MD LAB BLOOD ORDERABLES Final Resul t Performing Organization Address [facility] de Phone Number [facility] [address] [address] [place] [address] * Albumin Creatinine Ratio, Urine (03/11/2024 3:09 PM ZIPPER SETTER LOCKSTITCH) Albumin Ur 20.3 mg/L Comment: Interpretive Data No reference range established. Current interpretive data was last revised 2018. Creatinine Ur 137.6 mg/dL VAIBHAV Comment: Interpretive Data No reference range established. Current interpretive data was last revised 2018. Albumin Creatinine Ratio, Ur 15 1 - 29 mg/g [facility] Urine 03/11/2024 3:09 PM ZIPPER SETTER LOCKSTITCH 03/11/2024 8:08 PM ZIPPER SETTER LOCKSTITCH us Ann Marie Orta MD LAB URINE ORDERABLES Final Resul t Performing Organization Address [facility] Co de Phone Number [facility] [id number] Department of [email or web address] [place], [place] [phone] * Lipid panel (03/11/2024 3:09 PM ZIPPER SETTER LOCKSTITCH) Cholesterol 148 30 - 199 mg/dL Comment: Interpretive Data Ages < or = 19 years Acceptable: <170 mg/dL Borderline high: 170-199 mg/dL High: >or= 200 mg/dL Ages > or = 20 years Desirable: <200 mg/dL Borderline high: 200-239 mg/dL High: >or= 240 mg/dL Literature References: 1. Expert Panel on Integrated Guidelines for Cardiovascular Health and Risk Reduction in Children and Adolescents. Pediatrics 2011;128:S213 2. NCEP Expert Panel. Circulation 2004;110:227 Current Interpretive Data was last revised on 2017. Triglycerides 95 <=149 mg/dL [facility]IBH[facility]ENN Comment: Interpretive Data Ages < or = 9 years Acceptable: <75 mg/dL Borderline high: 75-99 mg/dL High: >or= 100 mg/dL Ages 10 to 20 years Acceptable: <90 mg/dL Borderline high: 90-129 mg/dL High: >or= 130 mg/dL Ages > or = 20 years Desirable: <150 mg/dL Borderline high: 150-199 mg/dL High: 200-499 mg/dL Very high: >or= 499 mg/dL Literature References: 1. Expert Panel on Integrated Guidelines for Cardiovascular Health and Risk Reduction in Children and Adolescents. Pediatrics 2011;128:S213 2. NCEP Expert Panel. Circulation 2004;110:227 Current Interpretive Data was last revised on 2017. HDL 49 >=40 mg/dL VAIBHAV PENN Comment: Interpretive Data Ages < or = 19 years Acceptable: >45 mg/dL Borderline low: 40-45 mg/dL Low: <40 mg/dL Ages > or = 20 years Desirable: >or= 60 mg/dL Low: <40 mg/dL Literature References: 1. Expert Panel on Integrated Guidelines for Cardiovascular Health and Risk Reduction in Children and Adolescents. Pediatrics 2011;128:S213 2. NCEP Expert Panel. Circulation 2004;110:227 Current Interpretive Data was last revised on 2017. LDL, calculated 81 <=129 mg/dL VAIBHAV PENN Comment: Interpretive Data Ages < or = 19 years Acceptable: <110 mg/dL Borderline high: 110-129 mg/dL High: >or= 130 mg/dL Ages > or = 20 years Optimal: <100 mg/dL Near optimal: 100-129 mg/dL Borderline high: 130-159 mg/dL High: >160 mg/dL Calculated using the Vo LDL-C estimating equation. This equation was implemented on 2023. Prior to this date LDL-C was estimated using the Friedewald equation. Literature References: 1. Expert Panel on Integrated Guidelines for Cardiovascular Health and Risk Reduction in Children and Adolescents. Pediatrics 2011;128:S213 2. NCEP Expert Panel. Circulation 2004;110:227 3. Tavo M et al. MARIMAR Cardiol. 2019June 10;5(5):540-548. doi: 10.1001/jamacardio.2020.0013 Current Interpretive Data was last revised on 2023. Non-HDL Cholesterol 99 mg/dL [facility]IBHAV PENN Comment: Interpretive Data Ages < or = 19 years Acceptable: <120 mg/dL Borderline high: 120-144 mg/dL High: >145 mg/dL Ages > or = 20 years When triglycerides are >200 mg/dL, Non-HDL cholesterol is a secondary target of therapy with treatment goals that are 30 mg/dL greater than the LDL cholesterol target. Literature References: 1. Expert Panel on Integrated Guidelines for Cardiovascular Health and Risk Reduction in Children and Adolescents. Pediatrics 2011;128:S213 2. NCEP Expert Panel. Circulation 2004;110:227 Current Interpretive Data was last revised on 2017. Chol/HDL ratio 3 VAIBHAV PENN Blood 03/11/2024 3:09 PM ZIPPER SETTER LOCKSTITCH 03/11/2024 8:08 PM ZIPPER SETTER LOCKSTITCH Result [facility] Ann Marie Orta MD LAB BLOOD ORDERABLES Final Resul t [facility] [id number] [place] [address] * DIABETES EYE EXAM (08/18/2019) Result [facility] Historical [facility] Edited Result - Final * DIABETES FOOT EXAM (07/12/2016) Pathologist [facility] Diabetic Foot Exam Unknown Result [facility] Historical [place] [facility] Final Result * COLONOSCOPY IMAGES (08/30/2013) Anatomical Region Laterality Modality Other Narrative 08/30/2013 Ordered by an unspecified provider. Result [facility] Historical Provider MD SWIFT PROCEDURE ORDERABLES F inal Result from Last 3 Months or Most Recently Relevant to Health Maintenance Insurance LOCAL PLUS [facility] OPEN ACCESS LOCAL PLUS Care Teams Ambulatory Services Representative Relationship Specialty Start Date End Date No, Physician PCP - General 11/03/24
--- OUTSIDE RECORDS SUMMARY | 2024-12-24 17:56 | XMS_ITS | Encounter Summary ---
Author Organization [facility] Address [address] [place] [address] Care Team Providers Care Boxing Promoter Name Role Phone Unavailable Primary Care Provider Unavailabl e Encounter Details Date Type Department Care Team (Late st Contact Info) Description 01/11/2021 Lab Requisition [facility] Derm[facility] Lab [address] [place] [phone] Haseeb Hall Jr., MD [address] [place] [address] Social History Tobacco Use Types Packs/Day Years Used Date Smoking Tobacco: Never Assessed Sex and Gender Information Value Date Recorded Sex Assigned at Not on file Legal Sex Male 3:58 PM INSURANCE PROCESSING CLERK Gender Identity Not on file Sexual Orientation Not on file documented as of this encounter Plan of Treatment Not on file documented as of this encounter Procedures Procedure Name Priority Date/Time Associated Diagnosis Comments DERMATOPATHOLOGY Routine 01/09/2021 12:0 0 AM INSURANCE PROCESSING CLERK documented in this encounter Results * DERMATOPATHOLOGY (01/09/2021 12:00 AM INSURANCE PROCESSING CLERK) Case Report Dermatopathology Report Case: [id number] Authorizing Provider: Haseeb Hall Jr., MD Collected: 01/09/2021 12:00 AM Ordering Location: [facility] Derm[facility] Lab Received: 01/11/2021 08:26 AM Pathologist: Angelica Chahal MD Specimens: A) - Skin, left central frontal scalp B) - Skin, right chin 3:36 PM INSURANCE PROCESSING CLERK DERMATOPATHOLOGY LABORATORY Final Diagnosis Specimen A. 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 3:36 PM [facility] DERMATOPATHOLOGY LABORATORY Gross Description Specimen A: Received is one formalin filled container labeled with the patient's name and designated left central frontal scalp. The specimen consists of a shave biopsy measuring [id number]. Jar 0. Specimen B: Received is one formalin filled container labeled with the patient's name and designated right chin. The specimen consists of a shave biopsy measuring [id number]. Jar 0. 3:36 PM [facility] DERMATOPATHOLOGY LABORATORY Microscopic Description Specimen A. SKIN, left central frontal scalp: Sections show a proliferation of blood vessels in lobules lined by uniform endothelial cells and by fibrous septa. The stroma is edematous and contains a mixed inflammatory cell infiltrate. The overlying epidermis is eroded. There is epidermal hyperplasia beneath which there are vascular proliferation, fibroblasts, and an edematous stroma. Specimen B. SKIN, right chin: There is hyperkeratosis alternating with parakeratosis. There is epidermal hyperplasia with disorderly maturation of keratinocytes with nuclear pleomorphism confined to the lower half of the epidermis. The epidermis is focally necrotic and covered with a scale-crust. There is fibrin at the base. Sections show associated acanthosis, hypergranulosis, and hyperkeratosis. The papillary dermis is fibrotic. 3:36 PM [facility] DERMATOPATHOLOGY LABORATORY Disclaimer An external and internal positive and negative controls are appropriate for the histochemical, immunohistochemical and immunofluorescence stain(s) in this case (if any), except where stated explicitly. The performance characteristics of the stain(s) cited in this report were developed and its performance characteristic determined by the Dermatopathology Laboratory at [facility], directed by Dr. Lakshmi Kline. These tests need not be, and therefore are not, approved by the [place] Food and Drug Administration. The tests are used for clinical purposes. Billing Codes Specimen Charges Stain Charges 38285 03980 1 1 1 3:36 PM INSURANCE PROCESSING CLERK DERMATOPATHOLOGY LABORATORY Embedded Images 3:36 PM INSURANCE PROCESSING CLERK DERMATOPATHOLOGY LABORATORY Pathology/Cytology TISSUE SPECIMEN FROM SKIN / Unknown 01/09/2021 01/11/2021 8:26 AM INSURANCE PROCESSING CLERK Miscellaneous samples (specimen) TISSUE SPECIMEN FROM SKIN / Unknown 01/09/2021 01/11/2021 8:26 AM INSURANCE PROCESSING CLERK us Haseeb Hall Jr., MD LAB - PATHOLOGY/CYTOLOG Y ORDERABLES Final Result DERMATOPATHOLOGY LABORATORY [facility] - Department of Dermatology [facility] Specialized Medicine [address] [place] [address], [address] [phone] documented in this encounter Visit Diagnoses Not on filedocumented in this encounter
--- OUTSIDE RECORDS SUMMARY | 2024-12-24 17:56 | XMS_ITS | Clinical Summary ---
Author Organization [facility] Address [address] [place] [address] Phone Care Team Providers Care Precise Winder Name Role Phone Helder Figueroa MD Primary Care Provider Allergies No known active allergies Medications metFORMIN (GLUCOPHAGE XR) 500 mg Extended Release 24 hour tablet metformin ER 500 mg tablet,extended release 24 hr 0 Active losartan (COZAAR) 100 mg tablet every 24 hours. Acti ve rosuvastatin (CRESTOR) 10 mg tablet rosuvastatin 10 mg tablet TAKE 1 TABLET BY MOUTH EVERY DAY Active semaglutide (Ozempic) 0.25 mg or 0.5 mg(2 mg/1.5 mL) Pen Injector Ozempic 0.25 mg or 0.5 mg (2 mg/1.5 mL) subcutaneous pen injector Active sertraline (ZOLOFT) 100 mg tablet sertraline 100 mg tablet 0 Active levothyroxine 150 mcg tablet levothyroxine 150 mcg tablet Active diclofenac sodium (VOLTAREN XR) 100 mg Extended Release 24 hour tablet diclofenac ER 100 mg tablet,extended release 24 hr Active celecoxib (CeleBREX) 200 mg capsule celecoxib 200 mg capsule Active buPROPion HCL (WELLBUTRIN XL) 150 mg Extended Release 24 hour tablet bupropion HCl XL 150 mg 24 hr tablet, extended release 1 Active amLODIPine (NORVASC) 5 mg tablet amlodipine 5 mg tablet 2 Active Active Problems Problem Noted Date Diagnosed Date Erythrocytosis 07/04/2021 Social History Tobacco Use Types Packs/Day Years Used Date Smoking Tobacco: Never Assessed Sex and Gender Information Value Date Recorded Sex Assigned at Not on file Legal Sex Male 8:07 AM CDT Gender Identity Not on file Sexual Orientation Not on file Last Filed Vital Signs Vital Sign Reading Time Taken Comments Blood Pressure 143/71 07/04/2021 3:02 PM CDT Pulse 75 07/04/2021 3:02 PM CDT Temperature 36.7 C (98.1 F) 07/04/2021 3:02 PM CDT Respiratory Rate - - Oxygen Saturation 97% 07/04/2021 3:02 PM CDT Inhaled Oxygen Concentration - - Weight 144.8 kg (319 lb 3.2 oz) 07/04/2021 3:02 PM CDT Height 182.9 cm (6') 07/04/2021 3:02 PM CDT Body Mass Index 43.29 07/04/2021 3:02 PM CDT Plan of Treatment Health Maintenance Due Date Last Done Comments DIABETES ANNUAL RETINAL EXAM 09/08/2001 DIABETES MICROALBUMIN ANNUAL SCREEN 09/08/2001 LDL CHOLESTEROL ANNUAL 09/08/2001 HEPATITIS B VACCINES (1 of 3 - 19+ 3-dose series) 09/08/2002 HPV VACCINES (1 - 3-dose SCD M series) 09/08/2010 DIABETES HBA1C Q 6 MONTHS 10/28/2021 04/27/2021, DIABETES ANNUAL FOOT EXAM 05/21/2022 05/21/2021 INFLUENZA VACCINE (#1) 2024 9, 01/24/2017, 01/11/2016, Additional history exists COVID-19 Vaccine (2 - 2024-2 6 season) 2024 04/17/2020 DTAP/TDAP/TD VACCINES (3 - T d or Tdap) 03/23/2028 03/23/2018, 11/08/2009 Procedures Procedure Name Priority Date/Time Associated Diagnosis Comments HEMOGLOBIN A1C Routine 08/04/2018 8:47 AM CDT Impaired fasting glucose from Last 3 Months or Most Recently Relevant to Health Maintenance Results * (ABNORMAL) HEMOGLOBIN A1C (08/04/2018 8:47 AM CDT) HEMOGLOBIN A1C 6.4(H) <5.7 % 08/04/2018 1:40 PM CDT [facility] EST. AVG GLUCOSE, A1C 137 mg/dL 08/04/2018 1:40 PM CDT [facility] Blood Venipuncture / Unknown 08/04/2018 8:47 AM CDT 08/04/2018 9:10 AM CDT Narrative [facility] - 08/04/2018 1:40 PM CDT HGB A1C INTERPRETATION NORMAL: <5.7% PRE-DIABETES: 5.7 - 6.4% DIABETES: 6.5% OR GREATER us External Provider [facility] CHEMISTRY ORDERABLES Fin al Result [facility] CLIA# [id number] [address] [place] [address] from Last 3 Months or Most Recently Relevant to Health Maintenance Insurance [facility] BLUE ACCESS/TRUE BLUE PPO [facility] BLUE ACCESS/TRUE BLUE PPO Care Teams Precise Winder Relationship Specialty Start Date End Date Helder Figueroa MD PCP - General Internal Medicine 08/04/18
--- OUTSIDE RECORDS SUMMARY | 2024-12-24 17:58 | XMS_ITS | Patient Health Record ---
Author Organization [facility] Address [address] [place] [address] Care Team Providers Care Graphics Specialist Name Role Phone Mar Alvarez Unavailable [phone] Reason For Referral No Information Medications Medication SIG (Take, Route, Frequency, Duration) Notes Start Date End Date Status Levothyroxine Sodium 150 MCG Tablet Oral 03/05/2022 Active metFORMIN HCl ER 500 MG Tablet Extended Release 24 Hour Oral 03/05/2022 Active buPROPion HCl ER (XL) 300 MG Tablet Extended Release 24 Hour Oral 03/05/2022 Active Clotrimazole 1 % Solution External 03/05/2022 Active Rosuvastatin Calcium 5 MG Tablet Oral 03/05/2022 Active Simponi *Pick strength-form from [facility] for eRX* 03/05/2022 Active Rosuvastatin Calcium 10 MG Tablet Oral 03/05/2022 Active amLODIPine Besylate 5 MG Tablet Oral 03/05/2022 Active traMADol HCl 50 MG Tablet Oral 03/05/2022 Active XYOSTED 75 MG/0.5 ML SUBCUTANEOUS AUTO-INJECTOR *Reorder from [facility] for eRx and Interaction Alerts* 03/05/2022 Active Losartan Potassium 100 MG Tablet Oral 03/05/2022 Active Ozempic (0.25 or 0.5 MG/DOSE) 2 MG/3ML Solution Pen-injector Subcutaneous *Pick strength-form from [facility] for eRX* 03/05/2022 Active sulfaSALAzine 500 MG Tablet Delayed Release Oral 03/05/2022 Active Vilazodone HCl 20 MG Tablet Oral 03/05/2022 Active Immunizations Vaccine Route Administration Date Status Comme nts Influenza, unspecified formulation Unknown 01/18/2017 A dministered Influenza, unspecified formulation Unknown 03/23/2018 A dministered Allie Covid-19 Vaccine Unknown 04/17/2020 Administere d Moderna Covid-19 Vaccine 1st dose Unknown 02/22/2021 Ad ministered Novel [id number], preservative free Unknown 11/20/2018 Administered Td (adult), adsorbed Unknown 03/22/2018 Administered Tdap Unknown 03/22/2018 Administered Social History Social History Additional Details Category Social Info Options Details Migrated Social History Migrated Social History Alcohol Intake: Occasional 10/24/2020,Tobacco Years: Former smoker 02/08/2022 Plan Of Treatment No Information Insurance Providers Payer Name Payer Address Payer Phone Subscriber Number Group Number Insured Name Patient Relationship to Insured Coverage Start Date Coverage End Date [employer] [address] [place] [address] [id number] SCOTT PEARCE Self - patient is the insured
--- OUTSIDE RECORDS SUMMARY | 2024-12-24 17:58 | XMS_ITS | Patient Health Record ---
Author Organization [facility] [place] ([address]) Address [address] [place] [address] Care Team Providers Care Semaphore Operator Name Role Phone Alana Cano Unavailable [phone] Allergies No Known Allergies Reason For Referral No Information Medications Medication SIG (Take, Route, Frequency, Duration) Notes Start Date End Date Status Montelukast Sodium 10 MG 1 tablet Orally Once a day; Duration: 30 days 07/15/2024 Active ZyrTEC 10 MG 2 tablets Orally twi ce a day; Duration: 30 days 07/15/2024 Active Levothyroxine Sodium 150 MCG 1 tablet in the morning on an empty stomach Orally Once a day Active Famotidine 40 MG 1 tablet Orally twic e a day; Duration: 30 days 07/16/2024 Active Rosuvastatin Calcium 10 MG 1 tablet Orally Once a day Active Losartan Potassium 100 MG 1 tablet Orall y Once a day Active Famotidine 40 MG 1 tablet Orally Once a day Active predniSONE 10 MG (21) as directed Orally Active Celecoxib 200 MG 1 capsule as needed Orally Once a day Not-Taking sulfaSALAzine 500 MG 1 tablet Orally Onc e a day Active Celecoxib 200 MG 1 capsule as needed Orally Once a day Active metFORMIN HCl 500 MG 1 tablet with a graham l Orally Once a day Active Mounjaro 5 MG/0.5ML as directed Subcutaneous Active Social History Sex Assigned At : Social History Observation Description Sex Assigned At Male Problems Problem Type SNOMED Code ICD Code Onset Dates Problem Status W/U Status Risk Notes Problem Psoriatic arthritis (disorder) (716367025) Arthropathic psoriasis, 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) Active confirmed Problem Psoriasis (6300170) Psoriasis, unspecified (L40.9) Active confirmed Vital Signs Blood pressure diastolic 95 mm Hg 07/15/2024 Oximetry 98 % 07/15/2024 Height 72 in 07/15/2024 Blood pressure systolic 137 mm Hg 07/15/2024 Weight 322.2 lbs 07/15/2024 BMI 43.69 kg/m2 07/15/2024 Encounters Encounter Location Date Provider Diagnosis [address] [address] 07/15/2024 Alana Rachael Urticaria, unspecifi ed L50.9 ; Arthropathic psoriasis, unspecified L40.50 and Psoriasis, unspecified L40.[address] [address] 11/09/2024 Alana Rachael Urticaria, unspecifi ed L50.[address] [address] 10/27/2024 Alana Rachael Assessments Encounter Date Diagnosis (ICD Code) Assessment Notes Treatment Notes Treatment Clinical Notes Section Notes 07/15/2024 Arthropathic psoriasis, unspecified (ICD-10 - L40.50) We discussed that skin testing for Tremfya is not possible. Recommend continued avoidance. He is planning to start Enbrel. 07/15/2024 Urticaria, unspecified (ICD-10 - L50.9) Patient reports hives after taking Tremfya. Hives are widespread and associated with lip and tongue swelling. Considerations for hives include autoimmune, viral, stress, or idiopathic. Plan to order labwork for further evaluation. - start medications as above - If these medications do not control hives, consider Xolair. - Order blood work to investigate the cause of hives. 11/09/2024 Urticaria, unspecified (ICD-10 - L50.9) 07/15/2024 Psoriasis, unspecified (ICD-10 - L40.9) Plan Of Treatment Pending Test Test Name Order Date COMPREHENSIVE METABOLIC PANEL 07/15/2024 TRYPTASE 07/15/2024 TSH W/REFLEX TO FT4 07/15/2024 CBC (INCLUDES DIFF/PLT) 07/15/2024 SED RATE BY MODIFIED JEAN CARLOS 07/16/19 25 Insurance Providers Payer Name Payer Address Payer Phone Subscriber Number Group Number Insured Name Patient Relationship to Insured Coverage Start Date Coverage End Date [employer] [address] [place] [address] [phone] [id number] Lukas Savage Self - patient is the insured 5 [facility] [address] [place] [address] [id number] Lukas Savage Self - patient is the insured 4 Medical (General) History Medical History History ICD Code Hypothyroidism Type II diabetes Psoriasis Psoriatic arthritis
== END 2024-12-24 14:15 | disposition home or self-care (01) ==
PROVIDERS: Emergency Provider Registered Nurse
DX: L40.50 Arthropathic psoriasis, unspecified (principal); E11.9 Type 2 diabetes mellitus without complications; Z79.84 Long term (current) use of oral hypoglycemic drugs; I10 Essential (primary) hypertension; E07.9 Disorder of thyroid, unspecified; L40.9 Psoriasis, unspecified
CPT/HCPCS: 99211; G0463